=== PATIENT | male | born 1975 | race Caucasian/White ===

== ENCOUNTER 2017-03-19 22:47 | Observation (INO) | payer MEDICAID, MEDICARE ==
[~2017-03-19] VITALS: Ht 182.9 cm; Wt 54.4 kg
[2017-03-19] MEDS ORDERED: ONDANSETRON HCL 4MG/2ML VIAL IV STA (23:46)
[2017-03-19] MEDS ORDERED: SODIUM CHLORIDE 0.9% 1,000 ML IV ONE (23:46)
[2017-03-19] MEDS ORDERED: MORPHINE SULFATE 4 MG/ML CPJ (NOT FOR IM USE) IV STA (23:46)
[2017-03-20] MEDS ORDERED: PIPERACILLIN/TAZ 3.375G PREMIX 50 ML IV ONE
[2017-03-20] MEDS ORDERED: METRONIDAZOLE 500 MG PREMIX 100 ML IV ONE
[2017-03-20 00:43] LABS: BASOPHILS % 0.4 % (0.0-2.0); EOSINOPHILS % 0.2 % (0.0-5.0); HEMATOCRIT. 30.7 % (42.0-52.0); HEMOGLOBIN. 10.7 g/dL (14.0-18.0); LYMPHOCYTES % 11.6 % (20.0-50.0); MEAN CORPUSCULAR HEMOGLOBIN 31.7 pg (28.0-32.0); MEAN CORPUSCULAR VOLUME 90.6 fL (80.0-94.0); MEAN PLATELET VOLUME 9.1 fl (7.4-10.4); MONOCYTES % 7.3 % (2.0-8.0); NEUTROPHILS % 80.5 % (40.0-76.0); PLATELET 122 x1000/uL (130-400); RED BLOOD CELL COUNT 3.39 mill/uL (4.7-6.1); RED CELL DISTRIBUTION WIDTH 13.9 % (11.6-14.6)
[2017-03-20 00:48] LABS: INR 1.1; PROTHROMBIN TIME 11.7 sec (9.4-11.6)
[2017-03-20 01:03] LABS: CARBON DIOXIDE 25 mEq/L (21-32); CHLORIDE 103 mEq/L (98-107); TROPONIN I < 0.02 ng/mL (0.00-0.04)
[2017-03-20] MEDS ORDERED: PIPERACILLIN/TAZ 3.375G PREMIX 50 ML IV SCH ×2 (04:24→13:00)
[2017-03-20 06:14] VITALS: BP 128/102
[2017-03-20] MEDS ORDERED: TRAM50TA3 PO (07:13)
[2017-03-20] MEDS ORDERED: GABA-290 PO (07:13)
[2017-03-20] MEDS ORDERED: DEXTROSE 50% WATER 50ML SYRINGE IV PRN (07:15)
[2017-03-20] MEDS ORDERED: MORPHINE SULFATE 4 MG/ML CPJ (NOT FOR IM USE) IV PRN (07:15)
[2017-03-20] MEDS ORDERED: TRAMADOL 50MG TABLET PO PRN (07:15)
[2017-03-20] MEDS: BLOOD SUGAR DIAGNOSTIC STRIP TEST SCH ×2 (07:28→12:21)
[2017-03-20] MEDS: DEXT 5%/0.45% NACL 1000ML 1,000 ML IV SCH ×2 (07:53→14:52)
[2017-03-20] MEDS: INSULIN LISPRO 100 UNITS/ML SUBCUT SCH ×2 (07:57→13:20)
[2017-03-20 08:00] VITALS: BP 98/74
[2017-03-20] MEDS: GABAPENTIN 400MG CAPSULE PO SCH ×2 (08:02→12:25)
[2017-03-20] MEDS ORDERED: MEDICATION NOT ON FORMULARY EA (Gabapentin 800 MG) PO SCH (09:00)
[2017-03-20 10:01] LABS: BASOPHILS % 0.4 % (0.0-2.0); EOSINOPHILS % 0.3 % (0.0-5.0); HEMATOCRIT. 34.9 % (42.0-52.0); HEMOGLOBIN. 12.1 g/dL (14.0-18.0); LYMPHOCYTES % 18.3 % (20.0-50.0); MEAN CORPUSCULAR HEMOGLOBIN 30.8 pg (28.0-32.0); MEAN CORPUSCULAR VOLUME 89.1 fL (80.0-94.0); MONOCYTES % 7.6 % (2.0-8.0); NEUTROPHILS % 73.4 % (40.0-76.0); PLATELET 143 x1000/uL (130-400); RED BLOOD CELL COUNT 3.92 mill/uL (4.7-6.1); RED CELL DISTRIBUTION WIDTH 13.6 % (11.6-14.6)
[2017-03-20 10:21] LABS: CARBON DIOXIDE 29 mEq/L (21-32); CHLORIDE 102 mEq/L (98-107)
[2017-03-20 11:37] VITALS: BP 96/72
[2017-03-20] MEDS ORDERED: CARVEDILOL 3.125 MG TABLET PO NR (13:45)
[2017-03-20 14:35] VITALS: BP 96/72
== END 2017-03-20 15:15 | disposition home or self-care (01) ==
LOC: ER 23:01 → INTOOBSV 03-20 03:21 → 8WST 03-20 03:21 → EDBEDREQ 03-20 03:33 → EDBEDREQSVC 03-20 03:45 → ENRESERV 03-20 04:18
PROVIDERS: ADMIT Internal Medicine; ATTEND Internal Medicine
DX: R53.83 Other fatigue (principal); E11.65 Type 2 diabetes mellitus with hyperglycemia; E86.0 Dehydration; G89.29 Other chronic pain; R19.7 Diarrhea, unspecified; R05 Cough; R10.9 Unspecified abdominal pain; D53.9 Nutritional anemia, unspecified; Z85.72 Personal history of non-Hodgkin lymphomas
CPT/HCPCS: 36415; 71010; 74176; 80048; 80053; 82962; 83605; 83880; 84484; 85025; 85610; 87040; 93005; 96361; 96365; 96367; 96372; 96375; 99285; G0378; J1815; J2270; J2405; J2543; J3490; J7030; 96366; A4315